=== PATIENT | female | born 1960 | race Caucasian/White ===

== ENCOUNTER 2025-05-27 11:53 | Day surgery (SDC) | payer MEDICARE, MEDICAID ==
[~2025-05-27] VITALS: Ht 160 cm; Wt 72.0 kg
[~2025-05-27 11:53] MED LIST: BALANCED SALT IRRIG SOLN 15ML ONE; BUPIVACAINE HCL/PF 0.75% (7.5MG/ML) 10ML ONE; CIPROFLOXACIN 0.3% OPHTH SOLN 2.5ML ONE; LIDOCAINE HCL 2% 5ML SYRINGE IV ONE; LIDOCAINE HCL/EPINEPHRINE 2%-EPI 1:200,000 20ML VIAL ONE; NEO/POLYMYX B SULF/DEXAMETH OPHTH OINT 3.5GM ONE; PHENYLEPHRINE HCL 2.5% OPHTH DROPS 2ML ONE; PREDNISOLONE ACETATE 1% OPHTH DROPS 5ML ONE; TETRACAINE 0.5% OPHTH DROPS 4ML ONE
[2025-05-27 12:17] VITALS: O2SAT 100
[2025-05-27 14:13] LABS: BASOPHILS % 0.3 % (0.0-2.0); EOSINOPHILS % 7.9 % (0.0-5.0); HEMATOCRIT. 36.6 % (36.0-48.0); HEMOGLOBIN. 12.5 g/dL (12.0-16.0); LYMPHOCYTES % 27.0 % (20.0-50.0); MEAN PLATELET VOLUME 7.5 fl (7.4-10.4); MONOCYTES % 5.6 % (2.0-8.0); NEUTROPHILS % 59.2 % (40.0-76.0); PLATELET 291 x1000/uL (130-400); RED BLOOD CELL COUNT 4.07 mill/uL (4.2-5.4); RED CELL DISTRIBUTION WIDTH 14.0 % (11.6-14.6)
[2025-05-27 14:16] VITALS: BP 127/71; PULSE 65; RESP 18; TEMP 36.5; O2SAT 100
[2025-05-27] MEDS: ACETAZOLAMIDE SODIUM 500MG/VIAL IV ONE (14:25)
[2025-05-27 14:26] LABS: CREATININE 1.0 mg/dL (0.6-1.0)
[2025-05-27 14:27] LABS: UREA NITROGEN BLOOD 19 mg/dL (9-23)
[2025-05-27 14:28] LABS: ASPARTATE AMINOTRANSFERASE 15 IU/L (<34)
[2025-05-27 14:29] LABS: BILIRUBIN DIRECT 0.2 mg/dL (<=3.0); BILIRUBIN TOTAL 0.8 mg/dL (0.1-1.0); PROTEIN TOTAL 7.1 g/dL (6.0-8.3)
== END 2025-05-28 | disposition home or self-care (01) ==
LOC: ER 11:53 → EDBEDREQ 15:22 → EDBEDREQTM 15:22 → OR 05-28 16:05
PROVIDERS: ATTEND Ophthalmology
DX: E11.39 Type 2 diabetes mellitus with other diabetic ophthalmic complication (principal); H40.51X0 Glaucoma secondary to other eye disorders, right eye, stage unspecified; E78.00 Pure hypercholesterolemia, unspecified; H18.20 Unspecified corneal edema; H21.00 Hyphema, unspecified eye; H40.051 Ocular hypertension, right eye; Z90.49 Acquired absence of other specified parts of digestive tract; Z98.890 Other specified postprocedural states; Z79.899 Other long term (current) drug therapy
CPT/HCPCS: 66180; 80076; 80048; 85025; 36415; 93005; 99285; C1783; J3490 ×2; J2003; J1120